=== PATIENT | female | born 1930 | race Two or more races ===

== ENCOUNTER 2018-02-18 04:07 | Inpatient (IN) | payer MEDICARE, OTHER ==
[~2018-02-18] VITALS: Ht 147.3 cm; Wt 64.4 kg
[2018-02-18] MEDS ORDERED: VANCOMYCIN 1 GM in IV D5W 250 ML IV ONE (04:30)
[2018-02-18] MEDS ORDERED: MORPHINE SULFATE INJ 2 MG/ML DISP.SYRIN IV ONE (04:30)
[2018-02-18] MEDS ORDERED: IV NS 0.9% 1,000 ML BAG IV ONE (04:30)
[2018-02-18] MEDS ORDERED: ONDANSETRON HCL/PF 4 MG/2 ML VIAL IVP ONE (04:30)
[2018-02-18] MEDS ORDERED: CEFEPIME 1 GM in IV D5W 50 ML IV ONE (04:30)
--- NOTE | 2018-02-18 04:30 | NUR ---
BIB RA TO ER BED 9 C/O GENERALIZED WEAKNESS. AA/OX 2 CONFUSED, REPETATIVE STATEMENTS. NO S/S SOB. SKIN PINK, WARM, DRY. EQUAL FACIAL SYMMETRY, EQUAL SPECIAL EDUCATION ASSOCIATE. ABLE TO MOVE ALL EXTREMITIES WELL. NAD. VSS. STABLE CONDITION. WILL CONTINUE TO MONITOR. Addendum: 02/18/18 at 0514 by ANGELA UNABLE TO PERFORM PROPER STROKE ASSESSMENT DUE TO CONFUSION
--- NOTE | 2018-02-18 04:44 | NUR ---
X RAY AT BEDSIDE
[2018-02-18] MEDS ORDERED: ONDANSETRON HCL/PF 4 MG/2 ML VIAL ONE (04:48)
[2018-02-18] MEDS ORDERED: CEFEPIME 1 GM VIAL ONE (04:48)
[2018-02-18] MEDS ORDERED: MORPHINE SULFATE INJ 2 MG/ML DISP.SYRIN ONE (04:49)
[2018-02-18 05:11] LABS: BASOPHILS % (AUTO) 0.6 % (0.0-2.0); EOSINOPHILS % (AUTO) 5.6 % (0.0-6.0); HEMATOCRIT 23 % (33-45); HEMOGLOBIN 7.6 g/dL (11.5-14.8); LYMPHOCYTES # (AUTO) 1.4 /CMM (0.8-4.8); LYMPHOCYTES % (AUTO) 29.6 % (20.0-44.0); MEAN CORPUSCULAR HGB CONC 33 g/dl (31.0-36.0); MEAN CORPUSCULAR VOLUME 87 fL (82-100); MONOCYTES # (AUTO) 0.3 /CMM (0.1-1.30); MONOCYTES % (AUTO) 6.7 % (2.0-12.0); NEUTROPHILS # (AUTO) 2.7 /CMM (1.8-8.9); NEUTROPHILS % (AUTO) 57.5 % (43.0-81.0); PLATELET COUNT (AUTO) 324 /CMM (150-450); RDW COEFFICIENT OF VARIATION 17.1 (11.5-15.0); RED BLOOD CELL COUNT(AUTO) 2.68 MIL/uL (4.0-5.2); WHITE BLOOD COUNT (AUTO) 4.8 K/uL (4.3-11.0)
[2018-02-18 05:15] LABS: APPEARANCE,URINE CLEAR (CLEAR); BILIRUBIN,URINE NEGATIVE (NEGATIVE); BLOOD, URINE NEGATIVE Ery/uL (NEGATIVE); COLOR,URINE YELLOW (YELLOW); KETONES,URINE NEGATIVE (NEGATIVE); LEUKOCYTE ESTERASE ,URINE NEGATIVE (NEGATIVE); NITRITE, URINE NEGATIVE (NEGATIVE); PROTEIN,URINE NEGATIVE (NEGATIVE); UGLUCOSE NEGATIVE (NEGATIVE); UROBILINOGEN,URINE 0.2 EU/dL (0.2)
[2018-02-18] MEDS ORDERED: VANCOMYCIN 1 GM VIAL ONE (05:15)
--- NOTE | 2018-02-18 05:22 | NUR ---
Patient is resting comfortably in bed with eyes closed. Easily aroused. VSS
[2018-02-18 05:25] LABS: CARBON DIOXIDE 26 mmol/L (21-32); CHLORIDE 100 mmol/L (98-107); CREATININE 1.3 mg/dL (0.6-1.3); GLUCOSE 120 mg/dL (74-106); INR 1.04 (0.87-1.13); SODIUM SERUM 137 mmol/L (136-145); UREA NITROGEN, BLOOD 39 mg/dL (7-18)
[2018-02-18 05:31] LABS: ALANINE AMINOTRANSFERASE 45 U/L (12-78); ALBUMIN 3.2 g/dL (3.4-5.0); ALKALINE PHOSPHATASE 135 U/L (46-116); ASPARTATE AMINOTRANSFERASE 22 U/L (15-37); BILIRUBIN,DIRECT 0.1 mg/dL (0.0-0.2); BILIRUBIN,TOTAL 0.4 mg/dL (0.2-1.0); TOTAL PROTEIN, SERUM 7.4 g/dL (6.4-8.2)
[2018-02-18 05:35] LABS: TROPONIN I 0.346 ng/mL (0.00-0.056)
--- NOTE | 2018-02-18 05:45 | NUR ---
CALLED RN SUP FOR TELE BED
[2018-02-18] MEDS ORDERED: ASPIRIN 81 MG TAB.CHEW PO ONE (06:00)
--- NOTE | 2018-02-18 06:20 | NUR ---
REPORT GIVEN ABSTRACTERMARSHA MINER
[2018-02-18] MEDS ORDERED: PRED20TA GT (06:27)
--- NOTE | 2018-02-18 06:34 | NUR ---
AT THIS TIME NOTED THAT PT IS ALLERGIC TO MORPHINE IN PT MED LIST FROM PT FACILITY. CONTACTED FACILITY AND THEY ARE UNAWARE OF THE AFFECTS OF THE MED TO THE PT. REASSESSMENT OF PT AFTER 2 MG OF MORPHINE SHOWS THAT PT HAS NO S/S OF ALLERGIC RXNS. ER NOTIFIED.
[2018-02-18 06:45] VITALS: BP 117/81
--- NOTE | 2018-02-18 06:45 | NUR ---
MANUAL ARTS TEACHER NOTE RECEIVED PATIENT AOX2, SPEECH CLEAR ON 8L O2 MASK, ON TELE SR, DENIES ANY PAIN, RAC #18G PATENT FLUSHING WELL, SITE IS CDI, VITAL SIGNS STABLE, IN NO ACUTE DISTRESS, SAFETY MAINTAINED AT ALL TIMES, CALL LIGHT WITHIN REACH, BED IN LOW LOCKED POSITION, WILL CONTINUE TO MONITOR FOR ANY CHANGES. WILL ENDORSE TO AM NURSE GARCIA.
--- NOTE | 2018-02-18 06:56 | NUR ---
PT TRANSPORTED TO TELE UNIT WITH STABLE CONDITION. VSS. NAD. VIA ACLS PROTOCOL.
[2018-02-18] MEDS ORDERED: MAG HYDROX/AL HYDROX/SIMETH 30 ML UDC PO PRN (07:00)
[2018-02-18] MEDS ORDERED: Z GUARD REMEDY 2 OZ OINT TP PRN (07:00)
[2018-02-18] MEDS ORDERED: MAGNESIUM HYDROXIDE 30 ML UDC PO PRN (07:00)
[2018-02-18] MEDS ORDERED: MORPHINE SULFATE INJ 2 MG/ML DISP.SYRIN IV PRN (07:00)
[2018-02-18] MEDS ORDERED: HYDROCODONE/APAP 5/325MG 1 EACH TABLET PO PRN (07:00)
--- NOTE | 2018-02-18 07:30 | NUR ---
DATA STEWARD NOTES PATIENT RECEIVED RESTING INSIDE ROOM. AWAKE, ALERT AND ORIENTED X 2. VERBALLY RESPONSIVE AND RESPONDS TO VERBAL AND TACTILE STIMULI. BREATHING EVEN AND UNLABORED. ON X2 AT 8L/MIN VIA FACE MASK, O2 SAT 100%. NO SOB OR ACUTE DISTRESS NOTED. PATIENT DENIES ANY PAIN OR DISCOMFORT. WILL CONTINUE TO MONITOR. SAFETY PRECAUTIONS IN PLACE. BED LOCKED AND IN LOW POSITION. BILATERAL UPPER SIDE RAILS UP AND LOCKED. BED ALARM ON. CALL LIGHT WITHIN EASY REACH
[2018-02-18 08:00] VITALS: BP 159/54
[2018-02-18] MEDS ORDERED: IPRA0.2S9 IH (08:05)
[2018-02-18] MEDS ORDERED: METO-356 PO (08:05)
[2018-02-18] MEDS ORDERED: HYDR-4384 PO (08:05)
[2018-02-18] MEDS ORDERED: ISOS30TA6 PO (08:05)
[2018-02-18] MEDS ORDERED: CRAN425C6 PO (08:05)
[2018-02-18] MEDS ORDERED: BLOO-668 IN (08:05)
[2018-02-18] MEDS ORDERED: CRAN3875 PO (08:05)
[2018-02-18] MEDS ORDERED: ASPI-1169 PO (08:05)
[2018-02-18] MEDS: ASPIRIN EC 81 MG TABLET.DR PO SCH (09:00)
--- NOTE | 2018-02-18 10:00 | NUR ---
MANAGER MISSION NOTES PLACED CALL TO [facility] AND SPOKE TO VERA RN. VERIFIED PATIENT MEDICATION AND ALLERGIES. ASKED IF PATIENT RECEIVED NORCO WHILE AT FACILITY, PER EVRA, PATIENT RECEIVED NORCO AT [facility], LAST DOSE GIVEN AT 02/17/18, NO REACTIONS REPORTED. PATIENT WITH RECORD OF MORPHINE ALLERGY BUT NO REPORT OF REACTION. WILL CONTINUE TO MONITOR
[2018-02-18] MEDS: LEVOFLOXACIN 750 MG /D5W 150ML 750 MG in PREMIX 1 EA IV SCH (11:46)
[2018-02-18 12:00] VITALS: BP 123/80
[2018-02-18] MEDS: FUROSEMIDE 40 MG/4 ML VIAL IV SCH ×3 (12:58→20:26)
[2018-02-18] MEDS: NITROGLYCERIN 0.4 MG/TAB BOTTLE SL PRN ×2 (14:39→14:53)
--- NOTE | 2018-02-18 15:31 | NUR ---
MACHINE ADJUSTER NOTES VERIFIED MORPHINE ORDER WITH DR. WHITMORE. PER DR. WHITMORE, CONTINUE WITH SAME ORDER OF MORPHINE PATIENT RECEIVED MORPHINE AT ER WITHOUT ANY NOTED REACTIONS. VERBALIZED TO KEEP CLOSE MONITORING WHEN ADMINISTERING MORPHINE FOR POSSIBLE REACTIONS. PHARMACY MADE AWARE. PATIENT MADE AWARE. WILL CONTINUE TO MONITOR
[2018-02-18 16:00] VITALS: BP 111/48
--- NOTE | 2018-02-18 18:47 | NUR ---
STARCH DUMPER NOTES PATIENT RESTING INSIDE ROOM. AWAKE, ALERT AND ORIENTED. VERBALLY RESPONSIVE AND RESPONDS TO VERBAL AND TACTILE STIMULI. BREATHING EVEN AND UNLABORED. NO SOB OR ACUTE DISTRESS NOTED AT THIS TIME. NO CHANGES IN LOC NOTED. CONTINUE WITH OXYGEN AT 5L/MIN VIA FACE MASK. PATIENT DENIES ANY PAIN OR DISCOMFORT. IV INTACT AND PATENT. WILL ENDORSE TO INCOMING SHIFT FOR PARTH. BED LOCKED AND IN LOW POSITION. CALL LIGHT WITHIN EASY REACH
--- NOTE | 2018-02-18 19:15 | NUR ---
AIRLINE COUNTER AGENT OPENING NOTES: RECEIVED PT ON 4LPM ON FACE MASK. PT IS A/XO2-3 AND IS FARSI SPEAKING ONLY. HOB SEMI-DONALDSON'S POSITION. PT HAS IV ON R AC #18G AND IS PATENT AND INTACT. CURRENTLY H/L. CALL LIGHT WITHIN PT'S REACH. BED KEPT IN LOW, LOCKED POSITION, AND SIDE RAILS X 2UP. BED ALARM ACTIVATED. WILL CONTINUE TO MONITOR PT.
[2018-02-18 20:00] VITALS: BP 129/62
[2018-02-18] MEDS: ACETAMINOPHEN 325 MG TABLET PO PRN (22:10)
[2018-02-18] MEDS: ZOLPIDEM TARTRATE 5 MG TABLET PO PRN (22:10)
[2018-02-19] VITALS (8 sets, daily range): BP systolic 108–138; BP diastolic 47–55
[2018-02-19 06:28] LABS: BASOPHILS % (AUTO) 0.4 % (0.0-2.0); HEMATOCRIT 23 % (33-45); HEMOGLOBIN 7.6 g/dL (11.5-14.8); LYMPHOCYTES # (AUTO) 0.9 /CMM (0.8-4.8); LYMPHOCYTES % (AUTO) 23.9 % (20.0-44.0); MEAN CORPUSCULAR HGB CONC 33 g/dl (31.0-36.0); MEAN CORPUSCULAR VOLUME 88 fL (82-100); MONOCYTES # (AUTO) 0.4 /CMM (0.1-1.30); MONOCYTES % (AUTO) 10.6 % (2.0-12.0); NEUTROPHILS # (AUTO) 2.4 /CMM (1.8-8.9); NEUTROPHILS % (AUTO) 60.1 % (43.0-81.0); PLATELET COUNT (AUTO) 311 /CMM (150-450); RDW COEFFICIENT OF VARIATION 16.8 (11.5-15.0); RED BLOOD CELL COUNT(AUTO) 2.62 MIL/uL (4.0-5.2); WHITE BLOOD COUNT (AUTO) 3.9 K/uL (4.3-11.0)
[2018-02-19 06:47] LABS: B-TYPE NATRIURETIC PEPTIDE 19073 PG/ML (0-125); CALCIUM, SERUM 8.6 mg/dL (8.5-10.1); CARBON DIOXIDE 26 mmol/L (21-32); CHLORIDE 101 mmol/L (98-107); CREATININE 1.4 mg/dL (0.6-1.3); GLUCOSE 93 mg/dL (74-106); MAGNESIUM 1.4 mg/dL (1.8-2.4); PHOSPHORUS 4.5 mg/dL (2.5-4.9); POTASSIUM 4.2 mmol/L (3.5-5.1); SODIUM SERUM 138 mmol/L (136-145); UREA NITROGEN, BLOOD 44 mg/dL (7-18)
[2018-02-19 06:49] LABS: CHOLESTEROL 219 mg/dL (<200); HDL CHOLESTEROL 54 mg/dL (40-60); LDL 145 mg/dL (0-99); THYROID STIMULATING HORMONE 1.113 uIU/mL (0.358-3.74); TRIGLYCERIDES 82 mg/dL (30-150)
--- NOTE | 2018-02-19 07:47 | NUR ---
STORE OPERATIONS SPECIALIST CLOSING NOTES: ALL NEEDS WERE ATTENDED AND ANTICIPATED FOR. PT ON 4LPM VIA FACE MASK. PT ONLY FARSI SPEAKING. NO SOB NOTED. NO S/S OF DISTRESS. IV REMAINS INTACT. CURRENTLY H/L. BED ALARM ACTIVATED. CALL LIGHT WITHIN PT'S REACH. BED KEPT IN LOW, LOCKED POSITION, AND SIDE RAILS X2 UP. PT ON TELE BOX AND READING SHOWS SR WITH BBBS. ENDORSED TO AM NURSE FOR PARTH.
--- NOTE | 2018-02-19 08:30 | NUR ---
RN NOTE: PATIENT RECEIVED ALERT AWAKE ORIENTED. ON 5LPM O2 VIA MASK, NO BREATHING DISTRESS NOTED. SAFETY MEASURES OBSERVED. ENCOURAGE TO USE CALL LIGHT FOR ASSISTANCE. WILL CONTINUE TO MONITOR.
[2018-02-19] MEDS: ASPIRIN EC 81 MG TABLET.DR PO SCH (09:00)
[2018-02-19 11:16] LABS: IRON, SERUM 24 ug/dl (50-175); TOTAL IRON BINDING CAPACITY 246 ug/dl (250-450)
[2018-02-19 11:30] LABS: FERRITIN 312 ng/mL (8-388)
[2018-02-19] MEDS: Magnesium 1GM/D5W 100ML PREMIX 100 ML IV SCH ×2 (11:54→13:24)
--- NOTE | 2018-02-19 12:00 | NUR ---
RN NOTE: ABG DONE ON ROOM AIR, PO2 55.6. DR. BRANDON MADE AWARE. RECEIVED NEW ORDERS TO PUT ON 2 LPM O2 VIA NC, ORDERS NOTED & CARRIED OUT.
[2018-02-19] MEDS ORDERED: HEPARIN INFUSION/D5W 500 ML IV PRN (14:30)
[2018-02-19] MEDS ORDERED: HEPARIN SODIUM, PORCINE 5000 UNITS/1 ML VIAL IV ONE (16:00)
--- NOTE | 2018-02-19 16:30 | NUR ---
RN NOTE: VAS LOWER EXTREMITY RESULTED WITH DVT TO RIGHT UPPER & MID FEMORAL VEIN, BOLUS HEPARIN GIVEN & STARTED ON HEPARIN DRIP PER NON ACS PROTOCOL. VERIFIED WITH AUCTION BLOCK CLERK & PHARMACIST. USED [employer] INTERPRETOR WITH ID [id number] TO COMMUNICATE WITH PATIENT. VERBALIZE TO UNDERSTAND.
--- NOTE | 2018-02-19 19:30 | NUR ---
HOISTMAN OPENING NOTES, RECEIVED IN BED AWAKE ALERT AND ORIENTED, XO2-3 FARSI SPEAKING ONLY, BREATHING EVEN AND UNLABORED, NO SOB/ACUTE DISTRESS DISTRESS NOTED, NO DISCOMFORT OR PAIN NOTED OR REPORTED, PATIENT SITTING ON EDGE OF THE BED AT THIS TIME, EDUCATION PROVIDED REGARDING SAFETY AND CALL FOR ASSISTANCE, INSTRUCTED PATIENT TO NOT GET UP FROM BED WITHOUT CALLING FOR ASSISTANCE, PATIENT IN HEPARIN DRIP AT THIS TIME, NO BLEEDING NOTED AT THIS TIME, IV ACCESS ON R AC #18G PATENT AND INTACT, CALL LIGHT WITHIN PT'S REACH. BED KEPT IN LOW, LOCKED POSITION, BED ALARM ACTIVATED WILL CONTINUE TO MONITOR CLOSELY.
[2018-02-19] MEDS: ZOLPIDEM TARTRATE 5 MG TABLET PO PRN (20:39)
[2018-02-19] MEDS: ACETAMINOPHEN 325 MG TABLET PO PRN (20:43)
--- NOTE | 2018-02-19 22:20 | NUR ---
PEDAL ASSEMBLER NOTES, RECEIVED RESULTS FOR APTT/INR/PT AT THIS TIME, PT 10.8, INR 1.04, APTT 70 ACCORDING TO THE WEIGHT-BASED HEPARIN ORDERS WE WILL CONTINUE HEPARIN AT SAME RATE, NO ADJUSTMENT IS NECESSARY AT THIS TIME DUE TO LAB RESULTS, WILL CONTINUE TO MONITOR CLOSELY.
[2018-02-20] VITALS (8 sets, daily range): BP systolic 111–123; BP diastolic 45–68
--- NOTE | 2018-02-20 07:00 | NUR ---
FIRE REGULATOR CLOSING NOTES, PATIENT IN BED AWAKE ALERT AND ORIENTED TO SELF FARSI SPEAKING ONLY, BREATHING EVEN AND UNLABORED, NO SOB/ACUTE DISTRESS DISTRESS NOTED, NO DISCOMFORT OR PAIN NOTED OR REPORTED, PATIENT IN HEPARIN DRIP AT THIS TIME WITH NO ADJUSTMENT IN HEPARIN RATE DUE TO THE RESULTS FROM LAST NIGHT, NO BLEEDING NOTED AT THIS TIME, IV ACCESS ON LEFT FA, PATENT AND INTACT, CALL LIGHT WITHIN PT'S REACH. BED KEPT IN LOW, LOCKED POSITION, BED ALARM ACTIVATED WILL ENDORSE CONTINUITY OF CARE TO ONCOMING NURSE.
--- NOTE | 2018-02-20 07:00 | NUR ---
TABLE WORKER OPENING NOTES RECEIVED PATIENT IN BED FARSI SPEAKING. SOMEWHAT AGITATED. ALERT AND ORIENTED NO SIGNS OF RESPIRATORY DISTRESS OR ACUTE PAIN. HEPARIN DRIP @ 1500 UNITS AWAITING LABS RESULTS. NO BLEEDING NOTED AT THIS TIME. SAFETY PRECAUTIONS IN PLACE CALL LIGHT WITHIN REACH
[2018-02-20 07:12] LABS: BASOPHILS % (AUTO) 0.8 % (0.0-2.0); EOSINOPHILS % (AUTO) 7.1 % (0.0-6.0); HEMATOCRIT 22 % (33-45); LYMPHOCYTES # (AUTO) 1.4 /CMM (0.8-4.8); LYMPHOCYTES % (AUTO) 34.1 % (20.0-44.0); MEAN CORPUSCULAR HGB CONC 32 g/dl (31.0-36.0); MEAN CORPUSCULAR VOLUME 87 fL (82-100); MONOCYTES # (AUTO) 0.4 /CMM (0.1-1.30); MONOCYTES % (AUTO) 9.9 % (2.0-12.0); NEUTROPHILS % (AUTO) 48.1 % (43.0-81.0); PLATELET COUNT (AUTO) 305 /CMM (150-450); RDW COEFFICIENT OF VARIATION 17.1 (11.5-15.0); RED BLOOD CELL COUNT(AUTO) 2.48 MIL/uL (4.0-5.2); WHITE BLOOD COUNT (AUTO) 4.2 K/uL (4.3-11.0)
[2018-02-20 07:23] LABS: HEMOGLOBIN 6.9 g/dL (11.5-14.8)
[2018-02-20 07:24] LABS: ALANINE AMINOTRANSFERASE 27 U/L (12-78); ALBUMIN 2.6 g/dL (3.4-5.0); ALKALINE PHOSPHATASE 98 U/L (46-116); ASPARTATE AMINOTRANSFERASE 14 U/L (15-37); BILIRUBIN,TOTAL 0.3 mg/dL (0.2-1.0); CALCIUM, SERUM 8.3 mg/dL (8.5-10.1); CARBON DIOXIDE 29 mmol/L (21-32); CHLORIDE 99 mmol/L (98-107); CREATININE 1.6 mg/dL (0.6-1.3); GLUCOSE 101 mg/dL (74-106); MAGNESIUM 2.1 mg/dL (1.8-2.4); PHOSPHORUS 4.5 mg/dL (2.5-4.9); SODIUM SERUM 131 mmol/L (136-145); TOTAL PROTEIN, SERUM 6.1 g/dL (6.4-8.2); UREA NITROGEN, BLOOD 47 mg/dL (7-18)
[2018-02-20 07:45] LABS: INR 1.14 (0.87-1.13)
--- NOTE | 2018-02-20 08:01 | NUR ---
AIRDOX FITTER NOTES RECEIVED APTT LABS OF 85 CHANGE OF 15 FROM PREVIOUS @ 70 WILL ADJUST DRIP ACCORDINGLY
[2018-02-20 08:29] LABS: BAND % (MANUAL) 1 % (0.0-5.0); EOSINOPHILS % (MANUAL) 6 % (0-4); LYMPHOCYTES % (MANUAL) 34 % (16-48); MONOCYTES % (MANUAL) 3 % (0-11.0); NEUTROPHILS % (MANUAL) 56 (42-76)
[2018-02-20] MEDS ORDERED: HEPARIN INFUSION/D5W 500 ML IV PRN (09:00)
[2018-02-20] MEDS: ASPIRIN EC 81 MG TABLET.DR PO SCH (09:09)
--- NOTE | 2018-02-20 10:22 | NUR ---
WOOD POLISHER NOTES SPOKE WITH DR ALMARAZ IN REGARDS TO IVC FILTER IN THE MORNING 02/21 PATIENT TO NPO AFTER MIDNIGHT AND SCHEDULED @0700. CONSENT WILL BE OBTAINED. HEPARIN DRIP RESTARTED PER DR SAWYER DECREASED TO 1000 UNITS PER SCALE AND DECREASE IN APPT OF 15. WILL CONT TO MONITOR FOR ANY BRUISING AND BLEEDING
[2018-02-20 13:10] LABS: OCCULT BLOOD STOOL NEGATIVE (NEGATIVE)
--- NOTE | 2018-02-20 13:31 | NUR ---
patient refusing iv insertion,spoke with son by phone he i scoming to talk to marcin also made aware of procedure to be done in am.
--- NOTE | 2018-02-20 14:01 | NUR ---
AIRCRAFT DE ICER INSTALLER NOTES PATIENT SON AT BEDSIDE EXPLAINED SURGERY WANT TO CLARIFY MORE WITH DR ALMARAZ. PHONE MESSAGE LEFT WITH SERVICE TO CALL BACK TO SPEAK WITH SON. PATIENT SIGNED THE CONSENT FOR BLOOD BUT REFUSES TO SIGN FOR SURGERY FOR IVC
--- NOTE | 2018-02-20 14:33 | NUR ---
SON LETICIA,PREMNikolay DPOA FOR PT. HAD A LONG DISCUSSION WITH DR. ALMARAZ AND DR. BRANDON,PER SON HIS MOTHER DOESNOT WANT SURGERY BUT AGREED WITH BLOOD TRANSFUSION.VERIFIED WITH DR. ALMARAZ AND OBTAINED ORDERS TO D/C NPO AND CANCEL SURGERY,OR STAFF HAFSA MADE AWRE.
--- NOTE | 2018-02-20 15:05 | NUR ---
RUBBER GOODS SUPERVISOR NOTE FLIGHT SIMULATOR TEACHER PLACED IV 2 GAUGE IN (R) WRIST OF PATIENT. NO SWELLING OR REDNESS NOTED FLUSHING WELL ATB RUNNING AT THIS TIME.
[2018-02-20] MEDS: LEVOFLOXACIN 750 MG /D5W 150ML 750 MG in PREMIX 1 EA IV SCH (15:10)
[2018-02-20] MEDS: SOD FERRIC GLUC 125 MG in IV NS 0.9% 100 ML IV SCH (16:45)
[2018-02-20 17:24] LABS: INR 1.12 (0.87-1.13)
--- NOTE | 2018-02-20 18:12 | NUR ---
PHOTO JOURNALIST NOTES COAGULATION @1958 PT-11.7 INR -1.12 APTT-53 . NO CHANGE TO DOSING PER PROTOCOL
--- NOTE | 2018-02-20 18:48 | NUR ---
RELAYS DRAFTSPERSON CLOSING NOTES PATIENT ALERT AND ORIENTED FARSI SPEAKING.PATIENT REFUSES TO HAVE IVC IN THE MORNING BUT AGREES TO BLOOD . ACCESS FOR 2ND LINE @1500 BY SCALLOP CUTTER . ANTIBIOTICS RAN AND FERRIT . WAITING FOR TYPE AND CROSS MATCH FOR PRBC HGB 6.9. OCCULT BLOOD IS NEGATIVE PATIENT C/O PAIN TO BILATERAL LOWER LEGS WELL FEELING COLD AND HOT. WARM TO TOUCH. SAFETY PRECAUTIONS IN PLACE BED IN LOW POSITION CALL LIGHT WITHIN REACH
--- NOTE | 2018-02-20 20:08 | NUR ---
ms/rn notes Received patient , a/ox3. resp. even et unlabored. No sob noted. V/s stable, afebrile. With Heparin Drip @ 25cc/hr. Patient tolerating it well. No active bleeding noted. No complained of pain or discomfort. no acute distress noted. will continue to monitor.
[2018-02-20] MEDS: NITROGLYCERIN 0.4 MG/TAB BOTTLE SL PRN ×2 (20:54→21:05)
[2018-02-20] MEDS: MORPHINE SULFATE INJ 4 MG/ML DISP.SYRIN IV PRN ×2 (21:10→22:04)
--- NOTE | 2018-02-20 21:16 | NUR ---
ms/rn notes Patient complained of sob and Chest pain, With O2 @ 4lpm via nc. Checked v/s signs, !, 98% o2 sat. Hr-98 Nitrostat 1 tabx2 given interval iof 5 mons.Patient still complained of chest pain. Medicated with Morphine sulfate 2mg ivp as ordered. Called the medical center, spoke with bisque grader md. Spoke With Juan Manuel Biggs, Ordered stat ekg and troponin.v Will continue to monitor.
--- NOTE | 2018-02-20 21:21 | NUR ---
ms/rn notes Ekg stat- Normal Sinus Rhythm. v/s - bp 112/ 63, hr-96,Reassess patient. Per patient pain is less. bambi continue to monitor
[2018-02-20] MEDS: ZOLPIDEM TARTRATE 5 MG TABLET PO PRN (22:46)
[2018-02-20] MEDS ORDERED: ZOLPIDEM TARTRATE 5 MG TABLET PO ONE (23:00)
[2018-02-21 01:00] VITALS: BP 132/76
[2018-02-21 01:50] VITALS: BP 123/63
[2018-02-21] MEDS: ONDANSETRON HCL/PF 4 MG/2 ML VIAL IVP PRN ×2 (03:09→04:53)
[2018-02-21] MEDS: MORPHINE SULFATE INJ 4 MG/ML DISP.SYRIN IV PRN (03:13)
--- NOTE | 2018-02-21 03:30 | NUR ---
ms/rn notes @ 0257 Patient called, complained of severe chest pain , less responsive, pale looking vomitedx1. V/s checked. Called [facility]. Cxr and Ekg stat ordered. Administered Morphine sulfate ivp and Zofran 4mv given as needed. With Good results. Patient chest pain relieved. Ekg results- Nsr. Cxr- negative. called and spoke With Dr. Ladd and made aware. No new order given. Just continue Supportive care. hRPARION DRIP STILL ONGOING. N o active bleeding noted. Patient sleeping at this time. no acute distress noted. will continue plan of care.
[2018-02-21 04:27] VITALS: BP 130/69
--- NOTE | 2018-02-21 05:29 | NUR ---
MS/RN NOTES' Admitted patient from er, with dx. of er. Patient is alert et oriented.Resp.even et unlabored. No sob noted. lungs are clear . Vital signs stable, afebrile. Received with ongoing Blood transfusion ongoing and Protonix drip. Skin in intact. No skin breakdown noted. Ambulatory. Patient complained of abdominal pain, 8/10 level of pain. Medicated with Morphine 2 mg ivp as needed. Received a call from lab, lactic acid 2.1, Informed Dr. Ladd. New order given and carried out. NS 500 ml bolus given, and repeat lactic acid draw @ 0530. All needs attended. Will continue plan of care. Addendum: 02/21/18 at 0703 by MANNIE VEGA RN Wrong patient. This documentation of For 113-1.
[2018-02-21 06:20] LABS: BASOPHILS % (AUTO) 0.5 % (0.0-2.0); EOSINOPHILS % (AUTO) 1.7 % (0.0-6.0); HEMATOCRIT 25 % (33-45); HEMOGLOBIN 8.3 g/dL (11.5-14.8); LYMPHOCYTES # (AUTO) 0.8 /CMM (0.8-4.8); LYMPHOCYTES % (AUTO) 17.3 % (20.0-44.0); MEAN CORPUSCULAR HGB CONC 33 g/dl (31.0-36.0); MEAN CORPUSCULAR VOLUME 87 fL (82-100); MONOCYTES # (AUTO) 0.4 /CMM (0.1-1.30); MONOCYTES % (AUTO) 7.9 % (2.0-12.0); NEUTROPHILS # (AUTO) 3.3 /CMM (1.8-8.9); NEUTROPHILS % (AUTO) 72.6 % (43.0-81.0); PLATELET COUNT (AUTO) 303 /CMM (150-450); RDW COEFFICIENT OF VARIATION 16.1 (11.5-15.0); RED BLOOD CELL COUNT(AUTO) 2.85 MIL/uL (4.0-5.2); WHITE BLOOD COUNT (AUTO) 4.6 K/uL (4.3-11.0)
[2018-02-21 06:23] LABS: ALANINE AMINOTRANSFERASE 35 U/L (12-78); ALBUMIN 2.9 g/dL (3.4-5.0); ALKALINE PHOSPHATASE 109 U/L (46-116); ASPARTATE AMINOTRANSFERASE 22 U/L (15-37); BILIRUBIN,TOTAL 0.4 mg/dL (0.2-1.0); CALCIUM, SERUM 8.5 mg/dL (8.5-10.1); CARBON DIOXIDE 27 mmol/L (21-32); CHLORIDE 99 mmol/L (98-107); CREATININE 1.5 mg/dL (0.6-1.3); GLUCOSE 148 mg/dL (74-106); PHOSPHORUS 4.2 mg/dL (2.5-4.9); POTASSIUM 4.4 mmol/L (3.5-5.1); SODIUM SERUM 135 mmol/L (136-145); TOTAL PROTEIN, SERUM 6.7 g/dL (6.4-8.2); UREA NITROGEN, BLOOD 50 mg/dL (7-18)
[2018-02-21 06:40] LABS: TROPONIN I 0.274 ng/mL (0.00-0.056)
--- NOTE | 2018-02-21 07:03 | NUR ---
ms/rn ntoes Received a call form lab. Ptt level -80. Heparin drip decrease 850 unit, 17 cc /hr. will continue plan of care.
--- NOTE | 2018-02-21 07:33 | NUR ---
LIFT DRIVER OPENING NOTES RECEIVED PATIENT IN BED FARSI SPEAKING. . ALERT AND ORIENTED NO SIGNS OF RESPIRATORY DISTRESS C/O BLE PAIN. DOCTOR RUFIAN AT BEDSIDE IN REGARDS TO IVC FILTER AND PATIENT DECISION NOT HAVE SURGERY AT THIS TIME HEPARIN DRIP @ 850UNITS AWAITING LABS RESULTS.REPORT GIVEN THAT VAULT CASHIER WAS CALLED ON PATIENT THIS MORNING PATIENT SEEMS TO HAVE RECOVERED WELL. NO BLEEDING NOTED AT THIS TIME. SAFETY PRECAUTIONS IN PLACE CALL LIGHT WITHIN REACH
[2018-02-21 08:00] VITALS: BP 115/69
[2018-02-21] MEDS: ASPIRIN EC 81 MG TABLET.DR PO SCH (09:11)
[2018-02-21] MEDS ORDERED: DABIGATRAN ETEXILATE MESYLATE 75 MG CAPSULE PO SCH (09:30)
[2018-02-21 12:00] VITALS: BP 115/69
[2018-02-21 14:12] LABS: ABG BASE EXCESS 0.5 mmol/L; ABG OXYGEN SATURATION 86.6 % (92.0-98.5); ABG PCO2 38.8 mmHg (35.0-45.0); ABG PH 7.424 (7.350-7.450); ABG PO2 55.6 mmHg (75.0-100.0); AaDO2 47.7 mmHg; COHb 0.3 % (0.5-1.5); MetHb 0.8 % (0.0-1.5); O2Hb 85.6 % (94.0-97.0); SITE, ABG Left Brachial; VENT MODE, BG RA
--- NOTE | 2018-02-21 14:52 | NUR ---
SUGAR HOUSE SUPERVISOR NOTES PHONE CALL INTO DR BRANDON IN REGARDS TO PATIENT DISCHARGE AND NO ANTI COAGULANT ORDER.
[2018-02-21] MEDS: SOD FERRIC GLUC 125 MG in IV NS 0.9% 100 ML IV SCH (14:58)
--- NOTE | 2018-02-21 15:03 | NUR ---
SCREW MACHINE SETTER NOTES SPOKE WITH DR BRANDON VERIFIED ORDER WAS IN MED RECONCILIATION
--- NOTE | 2018-02-21 16:08 | NUR ---
EXTRACTION SUPERVISORHOSPITALITY HOST NOTES/REPORT REPORT GIVEN TO MIO LARSON @ [facility] . @4645. TRANSPORT HER TO P/U IV LINES D/C. LEFT UNIT @ 9707 VIA STRETCHER
[2018-03-11] MEDS ORDERED: DABI150C PO (21:54)
[2018-03-11] MEDS ORDERED: DOCU-141 PO (21:54)
== END 2018-02-21 16:00 | DRG 280 ==
LOC: ER 04:09 → TELE1 06:13
PROC: 30233N1 Transfusion of Nonautologous Red Blood Cells into Peripheral Vein, Percutaneous Approach (ICD-10-PCS; principal; 2018-02-20)
DX: I11.0 Hypertensive heart disease with heart failure (principal); I26.99 Other pulmonary embolism without acute cor pulmonale; I21.A1 Myocardial infarction type 2; N17.0 Acute kidney failure with tubular necrosis; J96.01 Acute respiratory failure with hypoxia; E44.1 Mild protein-calorie malnutrition; I82.411 Acute embolism and thrombosis of right femoral vein; I50.33 Acute on chronic diastolic (congestive) heart failure; D63.8 Anemia in other chronic diseases classified elsewhere; F03.90 Unspecified dementia, unspecified severity, without behavioral disturbance, psychotic disturbance, mood disturbance, and anxiety; J44.9 Chronic obstructive pulmonary disease, unspecified; Z95.2 Presence of prosthetic heart valve; I05.0 Rheumatic mitral stenosis; E88.09 Other disorders of plasma-protein metabolism, not elsewhere classified; R73.9 Hyperglycemia, unspecified; Z95.0 Presence of cardiac pacemaker; E83.42 Hypomagnesemia; D50.9 Iron deficiency anemia, unspecified
CPT/HCPCS: 36415; 36600; 71045-TC; 76770-TC; 80048-TC; 80053-TC; 80061-TC; 80076-TC; 81000-TC; 82272-TC; 82728-TC; 82962-TC; 83540-TC; 83605-TC; 83735-TC; 83880; 84100-TC; 84443-TC; 84484-TC; 85025-TC; 85610-TC; 85730-TC; 86850-TC; 86921-TC; 87040-TC; 87081-TC; 87086-TC; 93307-TC; 93970-TC; A4216; A4606; G0378; J0692; J1644; J1940; J1956; J2270; J2405; J2916; J3370; J3475; J7030; J7060; P9016-BL; Z7610